=== PATIENT | female | born 1970 | race Caucasian/White ===

== ENCOUNTER 2024-09-24 08:03 | Outpatient (CLI) | payer OTHER, SELFPAY ==
--- NOTE | ~2024-09-24 | XR_ITS ---
Right Hand Technique: PA, oblique, and lateral views were obtained. Clinical History: Ganglion Findings: No acute fracture or dislocation is seen. Osseous alignment is anatomic. Joint spaces are p reserved. Soft tissues are unremarkable. Impression: Unremarkable right hand. Reviewed, dictated and finalized at location [facility] Impression: Unremarkable right hand.
== END 2024-09-24 08:04 | disposition home or self-care (01) ==
LOC: GOSHIMG 08:04
PROVIDERS: PCP Physician Assistant Surgical; Visit Provider Physician Assistant Surgical
DX: M67.431 Ganglion, right wrist (principal)
CPT/HCPCS: 73130